=== PATIENT | male | born 1970 | race Caucasian/White ===

== ENCOUNTER 2019-01-21 09:59 | Emergency (ER) | payer SELFPAY ==
[~2019-01-21] VITALS: Ht 167.6 cm; Wt 68.0 kg
[~2019-01-21 09:59] MED LIST: ULTRAM50 M1 OR
[2019-01-21] MEDS ORDERED: CEPHALEXIN500 MG PO (11:06)
[2019-01-21] MEDS ORDERED: CIPRO XR500 MG PO (11:34)
[2019-01-21] MEDS ORDERED: BACTRIM DS1 TAB PO (11:34)
[2019-01-21 12:07] VITALS: BP 108/73
== END 2019-01-21 12:06 | disposition home or self-care (01) | DRG 605 ==
LOC: ED 09:59
PROC: 0HCKXZZ Extirpation of Matter from Right Lower Leg Skin, External Approach (ICD-10-PCS; principal; 2019-01-21)
DX: S80.851A Superficial foreign body, right lower leg, initial encounter (principal); W26.8XXA Contact with other sharp object(s), not elsewhere classified, initial encounter; W45.8XXA Other foreign body or object entering through skin, initial encounter; Y93.19 Activity, other involving water and watercraft; Y92.828 Other wilderness area as the place of occurrence of the external cause